=== PATIENT | female | born 1980 | race Caucasian/White ===

== ENCOUNTER → 2016-03-15 | Outpatient (CLI) | payer BC ==
[~2016-03-15] MED LIST: FERROUS SULFATE65 MG PO; IRON FERROUS S325 MG PO; NO HOME MEDICATIONS
== END ==
LOC: LAB 15:29
DX: K90.9 Intestinal malabsorption, unspecified (principal); R53.81 Other malaise

== ENCOUNTER → 2020-02-23 | Outpatient (CLI) | payer BC ==
[2014-05-29 11:53] VITALS: BP 101/48
[2020-02-23 12:50] LABS: EOS # 0.1 (0.04-0.40); EOS % 1.2 % (1.0-5.0); HEMOGLOBIN 13.9 g/dL (12.5-16.0); LYMPH# 1.1 (1.50-4.00); MEAN CELL VOLUME 89 fl (78-100); MEAN CORPUSCULAR HEMOGLOBIN 28 pg (27-31); MEAN CORPUSCULAR HGB CONC 32 g/dL (33-37); MONO # 0.4 (0.20-0.80); NEU # 4.2 (1.40-6.50); PLATELET COUNT 174 K/mm3 (130-400); RED BLOOD COUNT 4.94 M/mm3 (4.10-5.30); RED CELL DISTRIBUTION WIDTH 12.9 % (11.5-14.5); WHITE BLOOD COUNT 5.8 K/mm3 (4.8-10.8)
[2020-02-23 12:52] LABS: MEAN PLATELET VOLUME 12.2 fl (7.4-10.4)
[2020-02-23 13:03] LABS: ALBUMIN 4.4 g/dL (3.5-5.0); POTASSIUM 4.3 mmol/L (3.5-5.1)
[2020-02-23 13:04] LABS: CALCIUM 9.1 mg/dL (8.3-10.5)
[2020-02-23 13:06] LABS: TOTAL PROTEIN 7.1 g/dL (6.4-8.3)
[2020-02-23 13:07] LABS: TOTAL BILIRUBIN 0.5 mg/dL (0.2-1.2)
[2020-02-23 13:14] LABS: D-DIMER 0.61 mg/L FEU (0.15-0.50)
== END ==
LOC: LAB 12:37
PROVIDERS: Physician Assistant
DX: R05 Cough (principal)
CPT/HCPCS: Q9967

== ENCOUNTER → 2021-02-21 | Outpatient (CLI) | payer BC | LOC: LAB 11:55 | DX: Z13.9 Encounter for screening, unspecified (principal) ==

== ENCOUNTER → 2021-09-08 | Outpatient (CLI) | payer BC ==
[2021-09-08 14:43] LABS: BASO # 0.03 K/mm3 (0.02-0.10); EOS # 0.25 K/mm3 (0.04-0.40); EOS % 4.8 % (1.0-5.0); HEMATOCRIT 39.3 % (37.0-47.0); HEMOGLOBIN 12.5 g/dL (12.5-16.0); LYMPH# 1.15 K/mm3 (1.50-4.00); MEAN CELL VOLUME 91 fl (78-100); MEAN CORPUSCULAR HEMOGLOBIN 29 pg (27-31); MEAN CORPUSCULAR HGB CONC 32 g/dL (33-37); MEAN PLATELET VOLUME 11.5 fl (7.4-10.4); MONO # 0.45 K/mm3 (0.20-0.80); NEU # 3.32 K/mm3 (1.40-6.50); PLATELET COUNT 165 K/mm3 (130-400); RED BLOOD COUNT 4.33 M/mm3 (4.10-5.30); RED CELL DISTRIBUTION WIDTH 12.9 % (11.5-14.5); WHITE BLOOD COUNT 5.2 K/mm3 (4.8-10.8)
[2021-09-08 14:55] LABS: ALBUMIN 4.2 g/dL (3.5-5.0); POTASSIUM 3.9 mmol/L (3.5-5.1)
[2021-09-08 14:56] LABS: CALCIUM 9.3 mg/dL (8.3-10.5)
[2021-09-08 14:57] LABS: TOTAL PROTEIN 6.8 g/dL (6.4-8.3)
[2021-09-08 14:59] LABS: TOTAL BILIRUBIN 0.4 mg/dL (0.2-1.2)
== END ==
LOC: LAB 14:30
PROVIDERS: Physician Assistant
DX: Z00.00 Encounter for general adult medical examination without abnormal findings (principal); Z13.220 Encounter for screening for lipoid disorders; Z13.29 Encounter for screening for other suspected endocrine disorder; K90.9 Intestinal malabsorption, unspecified

== ENCOUNTER → 2021-09-13 | Outpatient (CLI) | payer BC | LOC: MAMMO 12:55 | DX: Z12.31 Encounter for screening mammogram for malignant neoplasm of breast (principal) ==

== ENCOUNTER → 2023-12-06 | Outpatient (CLI) | payer BC ==
[2023-12-06 23:14] LABS: FOLLICLE STIMULATING HORMONE 7.6 mIU/mL (()); LUTENIZING HORMONE 3.1 mIU/mL (())
== END ==
LOC: LAB 08:13
PROVIDERS: Physician Assistant
DX: E89.41 Symptomatic postprocedural ovarian failure (principal)